=== PATIENT | male | born 1980 ===

== ENCOUNTER 2024-07-02 08:39 | Outpatient (REF) | payer OTHER, SELFPAY ==
--- NOTE | ~2024-07-02 | US_ITS ---
EXAMINATION: US SCROTUM HISTORY: TESTICULAR PAIN. COMPARISONS: There are no prior studies for comparison. FINDINGS: Real-time grayscale ultrasound imaging of the scrotum was performed. RIGHT TESTICLE: The right testis measures 4.1 x 2.2 x 3.1 cm and demonstrates normal homogeneous echotexture. No masses are seen. The right testis demonstrates normal color Doppler flow. RIGHT EPIDIDYMIS: Normal in size, shape, and vascularity. LEFT TESTICLE: The left testis measures 4.3 x 2.1 x 3.0 cm and demonstrates normal homogeneous echotexture. No masses are seen. The left testis demonstrates normal color Doppler flow. LEFT EPIDIDYMIS: Normal in size, shape, and vascularity. VARICOCELE: None. HYDROCELE: No significant hydrocele is seen. OTHER COMMENTS: None. US/US scrotum IMPRESSION: Unremarkable scrotal ultrasound. Electronically signed by: Tyler Lopez MD 07/02/2024 11:37 AM EST
== END 2024-07-02 08:40 | disposition home or self-care (01) ==
LOC: HO.UMASIMG 08:39
PROVIDERS: Visit Provider Internal Medicine
DX: N50.819 Testicular pain, unspecified (principal)
CPT/HCPCS: 76870

== ENCOUNTER → 2024-07-02 10:00 | Outpatient (BNV) | payer OTHER, SELFPAY | PROVIDERS: Visit Provider Radiology Diagnostic Radiology | DX: N50.819 Testicular pain, unspecified (principal) | CPT/HCPCS: 76870 ==